=== PATIENT | male | born 1975 | race Hispanic/Latino ===

== ENCOUNTER 2018-03-03 10:18 | Emergency (ER) | payer BC, OTHER ==
[2018-03-03] MEDS ORDERED: KETOROLAC TROMETHAMINE 30MG/ML ONE (10:57)
== END 2018-03-03 11:29 | disposition home or self-care (01) ==
LOC: EDH 10:18
DX: S62.617A Displaced fracture of proximal phalanx of left little finger, initial encounter for closed fracture (principal); Z87.891 Personal history of nicotine dependence; W23.0XXA Caught, crushed, jammed, or pinched between moving objects, initial encounter; Y93.89 Activity, other specified; Y92.098 Other place in other non-institutional residence as the place of occurrence of the external cause; Y99.8 Other external cause status
CPT/HCPCS: 73140; 96372; 99284; J1885